=== PATIENT | female | born 1955 | race Caucasian/White ===

== ENCOUNTER 2020-07-28 08:06 | Day surgery (SDC) | payer BC ==
[2020-07-24 14:45] LABS: Absolute Lymphocytes (CBC) 1.9 K/uL (0.7-4.9); Basophils % 0.7 % (0-1.3); Hematocrit 40.2 % (36.0-45.0); Lymphocytes % 33.6 % (15.3-44.8); MPV 9.6 fL (7.6-11.3); RBC Red Blood Cell Count 4.08 M/uL (3.86-4.86)
[2020-07-24 14:50] LABS: Protime INR 1.07
--- NOTE | 2020-07-24 14:50 | RAD REPORT ---
EXAM DESCRIPTION: RAD - Chest Pa And Lat (2 Views) - 07/24/2020 2:30 pm CLINICAL HISTORY: pre op Chest pain. COMPARISON: CHEST SINGLE VIEW dated 11/26/2013; CHEST SINGLE VIEW dated 02/02/2012 TECHNIQUE: PA and lateral views of the chest were obtained. FINDINGS: The lungs are hyperexpanded compatible with COPD. The heart is upper limit of normal in si ze. No fracture or aggressive bony process. IMPRESSION: COPD without acute process identified.
--- NOTE | 2020-07-25 13:29 | EKG ---
Test Date: 2020-07-24 Test Time: 14:09:46 Mental Health Nurse: CAROL MEASUREMENT RESULTS: Intervals: Rate: 75 [place]: 164 QRSD: 74 QT: 394 QTc: 439 [place]: P: 64 NJ: 164 QRS: 67 T: 84 INTERPRETIVE STATEMENTS: Normal sinus rhythm Nonspecific ST abnormality Abnormal ECG Compared to ECG 11/27/2013 14:02:57 ST (T wave) deviation now present Ventricular premature complex(es) no longer present Electronically Signed On 07-25-20 13:28:16 SENIOR WAREHOUSE CLERK by Satnana Rousseau
[~2020-07-28 08:06] MED LIST: AMPICILLIN SODIUM 2 GM in NA CHLORIDE 0.9% 100 ML IVPB SCH; Gentamicin Inj 160 MG in NA CHLORIDE 0.9% 100 ML IV SCH
--- OUTSIDE RECORDS SUMMARY | 2020-07-28 08:09 | XMS REPORT | Summary of Care ---
:1955 Author Organization [facility] Address [address] [place] [id number] Care Team Providers Name Role Phone MD Olman Primary Care Provider Reason for Visit Reason Comments Vaginal Problem burning Encounter Details Date Type Department Care Team Description 06/01/2020 Urgent Care [facility] Family John Plasencia FNP [address] [place] [address] [address] Acute vaginitis (Primary Dx); Medicine - [place] Provider, [facility] Dysuria; [address] [place] [address] Elevated B P without diagnosis [place] [address] Allergies Active Allergy Reactions Severity Noted Date Comments Codeine Nausea and/or Vomiting 09/30/2015 Hydrocodone Nausea and/or Vomiting 09/30/2015 Morphine Nausea and/or Vomiting 09/30/2015 documented as of this encounter (statuses as of 06/01/2020) Medications Medication Sig Dispensed Refills Start Date End Date Status metoprolol tartrate Take 1 Tab by 3 07/07/2015 Active (LOPRESSOR) 50 mg tablet mouth 2 (two) times daily. ESCITALOPRAM OXALATE 10 TAKE 1 TABLET 90 tablet 3 09/27/2019 Active mg tabletIndications: BY MOUTH DAILY Depression, unspecified depression type naproxen 500 mg Take 1 tablet 60 tablet 0 10/29/2019 Active tabletIndications: Strain by mouth 2 of rhomboid muscle, (two) times initial encounter daily with meals. cyclobenzaprine 10 mg Take 1 tablet 30 tablet 0 10/29/2019 Active tabletIndications: Strain by mouth 3 of rhomboid muscle, (three) times initial encounter daily as needed for Muscle Spasms. documented as of this encounter (statuses as of 06/01/2020) Active Problems Problem Noted Date Depression 09/30/2015 documented as of this encounter (statuses as of 06/01/2020) Social History Tobacco Use Types Packs/Day Years Used Date Former Smoker Quit: 09/29/18 98 Smokeless Tobacco: Never Used Alcohol Use Drinks/Week oz/Week Comments No Sex Assigned at Date Recorded Not on file COVID-19 Exposure Response Date Recorded In the last month, have you been in contact with No / Unsure 06/01/2020 2:07 PM INTERNAL COMBUSTION ENGINE SUBASSEMBLER someone who was confirmed or suspected to have Coronavirus / COVID-19? documented as of this encounter Last Filed Vital Signs Vital Sign Reading Time Taken Comments Blood Pressure 157/80 06/01/2020 2:11 PM INTERNAL COMBUSTION ENGINE SUBASSEMBLER Pulse 79 06/01/2020 2:11 PM INTERNAL COMBUSTION ENGINE SUBASSEMBLER Temperature 36.7 C (98 F) 06/01/2020 2:11 PM INTERNAL COMBUSTION ENGINE SUBASSEMBLER Respiratory Rate 18 06/01/2020 2:11 PM INTERNAL COMBUSTION ENGINE SUBASSEMBLER Oxygen Saturation 97% 06/01/2020 2:11 PM INTERNAL COMBUSTION ENGINE SUBASSEMBLER Inhaled Oxygen Concentration - - Weight 99.3 kg (219 lb) 06/01/2020 2:11 PM INTERNAL COMBUSTION ENGINE SUBASSEMBLER Height 182.9 cm (6') 06/01/2020 2:11 PM INTERNAL COMBUSTION ENGINE SUBASSEMBLER Body Mass Index 29.7 06/01/2020 2:11 PM INTERNAL COMBUSTION ENGINE SUBASSEMBLER documented in this encounter Patient Instructions Patient InstructionsZamzam Plasencia FNP - 06/01/2020 1:40 PM CST Patient Education Preventing Vaginitis Use mild, unscented soap when you bathe or shower to avoid irritating your vagina. Vaginitis is irritation or infection of the vagina or the outside opening of it (vulva).Vaginitis can be caused by bacteria, viruses, parasites, or yeast. Chemicals such as in perfumes or soaps or inspermicides can sometimes be a cause. Vaginitis can be caused by hormone changes in or with menopause.You can help prevent vaginitis. Follow the tips below. And see your healthcare providerif you have any symptoms. Hygiene Stay away from chemicals. Don't use vaginal sprays. Don't use scented toilet paper or tampons that are scented. Sprays and scents have chemicals that can irritate your vagina. Don't douche unless you are told to by your healthcare provider. Douching is rarely needed. And it upsets the normal balance in the vagina. Wash yourself well. Wash the outer vaginal area (vulva) every day with mild, unscented soap. Keepit as dry as possible. Wipe correctly. Make sure to wipe from front to back after a bowel movement. This helps keep fromspreading bacteria from your anus to your vagina. Change your tampon often. During your period, make sure to change your tampon as often as directed on the package. This allows the normal flow of vaginal discharge and blood. Lifestyle Limit your number of sexual partners. The more partners you have, the greater your risk of infection. Using condoms helps reduce your risk. Get enough sleep. Sleep helps keep your bodys immune system healthy. This helps you fight infection. Lose weight, if needed. Excess weight can reduce air circulation around your vagina. This can increase your risk of infection. Exercise regularly. Regular activity helps keep your body healthy. Take antibiotics only as directed.Antibiotics can change the normal chemical balance in the vagina. Clothing Dont sit in wet clothes. Yeast thrives when its warm and damp. Dont wear tight pants. And dont wear tights, leggings, or hose without a cotton crotch. These types of clothing trap warmth and moisture. Wear cotton underwear. Cotton lets air circulate around the vagina. Symptoms of vaginitis Irritation, swelling, or itching of the genital area Vaginal discharge Bad vaginal odor Pain or burning during urination [employer] last reviewed this educational content on 05/10/201919993197-8737 [employer]. [address] [place] [address]. All rights reserved. This information is not intended as a substitute for professional medical care. Always follow your healthcare professional's instructions. RNAL COMBUSTION ENGINE SUBASSEMBLER documented in this encounter Progress Notes Zamzam Plasencia FNP - 06/01/2020 1:40 PM CST Cc: Chief Complaint Patient presents with Vaginal Problem burning Kandy Zheng is a 64 year old female. Patient was treated for UTI during which she had to stop one antibiotics and start another due to culture. After the courses of antibiotics, she developed some rawness in her vulva which zaldivar when sheurinates, she is unsure if this is residual UTI symptoms or vaginitis from antibiotics side effects. Allergies Kandy is allergic to codeine; hydrocodone; and morphine. Medications Outpatient Medications Prior to Visit Medication Sig Dispense Refill cyclobenzaprine 10 mg tablet Take 1 tablet by mouth 3 (three) times daily as needed for Muscle Spasms. 30 tablet 0 naproxen 500 mg tablet Take 1 tablet by mouth 2 (two) times daily with meals. 60 tablet 0 ESCITALOPRAM OXALATE 10 mg tablet TAKE 1 TABLET BY MOUTH DAILY 90 tablet 3 metoprolol tartrate (LOPRESSOR) 50 mg tablet Take 1 Tab by mouth 2 (two) times daily. 3 No facility-administered medications prior to visit. Histories Past Medical History: Diagnosis Date Controlled atrial fibrillation Depression Past Surgical History: Procedure Laterality Date ECTOPIC REMOVAL 1994 FRACTURE SURGERY TONSILLECTOMY Social History Socioeconomic History Marital status: Spouse name: Not on file Number of children: Not on file Years of education: Not on file Highest education level: Not on file Occupational History Not on file Social Needs Financial resource strain: Not on file Food insecurity Worry: Not on file Inability: Not on file Transportation needs Medical: Not on file Non-medical: Not on file Tobacco Use Smoking status: Former Smoker Quit date: 09/29/1997 Years since quittin.6 Smokeless tobacco: Never Used Substance and Sexual Activity Alcohol use: No Drug use: Not on file Sexual activity: Not on file Lifestyle Physical activity Days per week: Not on file Minutes per session: Not on file Stress: Not on file Relationships Social connections Talks on phone: Not on file Gets together: Not on file Attends jain service: Not on file Active member of club or organization: Not on file Attends meetings of clubs or organizations: Not on file Relationship status: Not on file Intimate partner violence Fear of current or ex partner: Not on file Emotionally abused: Not on file Physically abused: Not on file Forced sexual activity: Not on file Other Topics Concern Not on file Social History Narrative Not on file Family History Problem Relation Age of Onset Aneurysm Mother Heart Father Cervical Cancer Sister Breast Cancer Maternal Grandmother Colon Cancer Paternal Grandmother Review of Systems Constitutional: Negative. Respiratory: Negative. Negative for apnea, cough, choking, chest tightness, shortness of breath andwheezing. Cardiovascular: Negative. Negative for chest pain, palpitations and leg swelling. Gastrointestinal: Negative. Genitourinary: Positive for dysuria and genital sores. Negative for urgency, decreased urine volume,vaginal bleeding and vaginal discharge. Skin: Negative. Neurological: Negative. Endocrine: Endocrine negative Vital Signs BP (!) 157/80 | Pulse 79 | Temp 36.7 C (98 F) (Oral) | Resp 18 | Ht 6' (1.829 m) | Wt 219 lb (99.3 kg) | SpO2 97% | BMI 29.70 kg/m Physical Exam Vitals signs and nursing note reviewed. Constitutional: Appearance: She is well-developed. HENT: Head: Normocephalic. Right Ear: External ear normal. Left Ear: External ear normal. Nose: Nose normal. Neck: Musculoskeletal: Normal range of motion and neck supple. Cardiovascular: Rate and Rhythm: Normal rate and regular rhythm. Heart sounds: Normal heart sounds. No murmur. No friction rub. No gallop. Pulmonary: Effort: Pulmonary effort is normal. No respiratory distress. Breath sounds: Normal breath sounds. No wheezing or rales. Chest: Chest wall: No tenderness. Abdominal: General: Bowel sounds are normal. There is no distension. Palpations: Abdomen is soft. Tenderness: There is no abdominal tenderness. Genitourinary: Comments: Differed Skin: General: Skin is warm and dry. Capillary Refill: Capillary refill takes less than 2 seconds. Coloration: Skin is not pale. Findings: No erythema or rash. Neurological: Mental Status: She is alert and oriented to person, place, and time. Psychiatric: Mood and Affect: Mood normal. Assessment/Plan Acute vaginitis (primary encounter diagnosis) Comment: likely side effects of antibiotics Plan: take OTC antifungal vaginal cream as directed Clinical references for home care instructions added to AVS. If no improvement or worse, please RTC. Dysuria Comment: likely from soreness along the vulva and vaginal region, but will re- eval UTI Plan: POCT URINALYSIS W SPECIFIC GRAVITY, URINALYSIS MICROSCOPIC, URINE CULTURE, URINALYSIS MICROSCOPIC Elevated blood pressure: follow up with PCP or group tester if persistent considering hx of Afib. Plan of care, desired health behaviors, goals, and medication discussed with patient. Education resources provided and reviewed with AVS. Patient/guardian/family verbalized understanding & agrees to plan of care. This visit did not involve counseling and coordination that comprised more than 50% of the visit time. If applicable, the [facility] database was accessed to review any controlled substance prescription claims data. The [employer] prescription claims data in [employer] was reviewed to assess patient compliance with the medication treatment plan. RNAL COMBUSTION ENGINE SUBASSEMBLER documented in this encounter Plan of Treatment Name Type Priority Associated Diagnoses Order S chedule URINALYSIS MICROSCOPIC LAB Routine Dysuria Expec percy: 06/01/2020, Expires: 2020 URINE CULTURE LAB Routine Dysuria Ordered: 06/01 Health Maintenance Due Date Last Done Comments HEPATITIS C (HCV) SCREEN 1955 Depression Screening 1969 DTaP,Tdap,and Td Vaccines (1 - 1976 Tdap) PAP SMEAR 1978 Breast Cancer Screening (MAMMOGRAM) 1997 COLON CANCER SCREENING ANNUAL 2007 FIT/FOBT COLON CANCER SCREENING FIT DNA 2007 EVERY 3 YEARS COLON CANCER SCREENING 2007 SIGMOIDOSCOPY EVERY 5 YEARS COLONOSCOPY 2007 Colorectal Cancer Screening 2007 Zoster Recombinant Vaccine 2007 (SHINGRIX) (1 of 2) INFLUENZA VACCINE (#1) 2020 PNEUMOCOCCAL 0-64 YEARS COMBINED Aged Out No longer eligible based on SERIES patient's age to complete this topic documented as of this encounter Procedures Procedure Name Priority Date/Time Associated Diagnosis Comme nts POCT URINALYSIS STAT 06/01/2020 Dysuria Results for this procedure are in the resu lts section. documented in this encounter Results POCT URINALYSIS W SPECIFIC GRAVITY (06/01/2020) Pathologist Sig nature POCT U SP GRAV 1.015 1.005 - 1.025 mg/dl POCT PH U 5 5 - 8 mg/dl POCT U LEUK EST ++ Negative - Negative POCT U NIT NEGATIVE Negative - Negative POCT U PROT TRACE Negative - Negative POCT U GLU 100 Negative - Negative POCT U KETONE NEGATIVE Negative - Negative POCT U UROBILI NORMAL 0.2 - 1 mg/dl POCT U BILI NEGATIVE Negative - Negative POCT U BLD 50 Negative - Negative POCT U COLOR PALE YELLOW POCT U APPEAR CLOUDY Specimen Urine - URINE, CLEAN CATCH documented in this encounter Visit Diagnoses Diagnosis Acute vaginitis - Primary Vaginitis and vulvovaginitis, unspecifie d Dysuria Elevated BP without diagnosis of hyperte nsion documented in this encounter Insurance Payer Benefit Plan Subscriber ID Effective Dates Phone Address Type / Group BCBS OF [facility] [id number] 2019-[facility] [phone] [address] PPO/POS [place] t [id number] [place] [address] documented as of this encounter"
--- OUTSIDE RECORDS SUMMARY | 2020-07-28 08:09 | XMS REPORT | Continuity of Care Document ---
:1955 Author Organization [facility] t Address [address] [place] [address] Care Team Providers Name Role Phone Olman DONOHUE Attending Clinician Problems This patient has no known problems. Allergies, Adverse Reactions, Alerts This patient has no known allergies or adverse reactions. Medications This patient has no known medications. Procedures This patient has no known procedures. Encounters Start End Encounter Admission Attending Care Care Encounter Source Date/Time Date/Time Type Type Clinicians Facility Department ID 2020-07-17 2020-07-17 Outpatient [facility] [id number] [facility] 2020-07-15 2020-07-15 Outpatient [facility] [id number] [facility] [address] 00:00:00 00[facility]00:00 [facility] 2020-07-08 2020-07-08 Office Olman [facility] [id number] 20 08:10:15 08:43:31 Visit [facility] [id number] [place] [id number] [place] [phone] [phone] 2020-07-06 2020-07-06 Outpatient [facility] [id number] [facility] 2020-07-02 2020-07-02 Outpatient [facility] [id number] [facility] 2020-07-01 2020-07-01 Out[facility] [id number] [facility] 2020-06-17 2020-06-17 Outpatient [facility] [id number] [facility] 2020-06-17 2020-06-17 Outpatient [facility] [id number] [facility] 2020-06-10 2020-06-10 Outpatient [facility] [id number] [facility] Results This patient has no known results.
--- OUTSIDE RECORDS SUMMARY | 2020-07-28 08:09 | XMS REPORT | Summary of Care ---
:1955 Author Organization [facility] - [facility] Address [address] [place] [address] Care Team Providers Name Role Phone MD Olman Primary Care Provider Reason for Visit Reason Comments UTI burning with urination 3 day s Encounter Details Date Type Department Care Team Description 05/13/2020 Urgent Care [facility] Jacqui Rodriguez, PA [address] [place] [address] [place] [address] Dysuria (Primary Dx); Medicine - [place] Provider, [facility] Acute cystitis with hematuria; [address] [place] [address] Elevated B [place] [address] Allergies Active Allergy Reactions Severity Noted Date Comments Codeine Nausea and/or Vomiting 09/30/2015 Hydrocodone Nausea and/or Vomiting 09/30/2015 Morphine Nausea and/or Vomiting 09/30/2015 documented as of this encounter (statuses as of 05/13/2020) Medications Medication Sig Dispensed Refills Start Date End Date Status metoprolol tartrate Take 1 Tab by 3 07/07/2015 Active (LOPRESSOR) 50 mg tablet mouth 2 (two) times daily. ESCITALOPRAM OXALATE 10 TAKE 1 TABLET 90 tablet 3 09/27/2019 Active mg tabletIndications: BY MOUTH DAILY Depression, unspecified depression type naproxen 500 mg Take 1 tablet 60 tablet 0 10/29/2019 Active tabletIndications: by mouth 2 Strain of rhomboid (two) times muscle, initial daily with encounter meals. cyclobenzaprine 10 mg Take 1 tablet 30 tablet 0 10/29/2019 Active tabletIndications: by mouth 3 Strain of rhomboid (three) times muscle, initial daily as encounter needed for Muscle Spasms. cefUROXime 250 mg Take 1 tablet 14 tablet 0 05/13/2020 020 Active tabletIndications: Acute by mouth 2 cystitis with hematuria (two) times daily for 7 days. 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 documented as of this encounter Last Filed Vital Signs Vital Sign Reading Time Taken Comments Blood Pressure 155/83 05/13/2020 4:14 PM INTERNAL COMBUSTION ENGINE INSPECTOR Pulse 75 05/13/2020 4:11 PM INTERNAL COMBUSTION ENGINE INSPECTOR Temperature 37 C (98.6 F) 05/13/2020 4:11 PM INTERNAL COMBUSTION ENGINE INSPECTOR Respiratory Rate 18 05/13/2020 4:11 PM INTERNAL COMBUSTION ENGINE INSPECTOR Oxygen Saturation 96% 05/13/2020 4:11 PM INTERNAL COMBUSTION ENGINE INSPECTOR Inhaled Oxygen Concentration - - Weight 100.2 kg (221 lb) 05/13/2020 4:11 PM INTERNAL COMBUSTION ENGINE INSPECTOR Height 181.6 cm (5' 11.5") 05/13/2020 4:11 PM INTERNAL COMBUSTION ENGINE INSPECTOR Body Mass Index 30.39 05/13/2020 4:11 PM INTERNAL COMBUSTION ENGINE INSPECTOR documented in this encounter Patient Instructions Patient InstructionsBelkis Rodriguez PA - 05/13/2020 3:40 PM INTERNAL COMBUSTION ENGINE INSPECTOR Patient Education Urinary Tract Infections in Women Urinary tract infections (UTIs) are most often caused by bacteria. These bacteria enter the urinary tract. The bacteria may come from inside the body. Or they may travel from the skin outside the rectum or vagina into the urethra. Female anatomy makes it easy for bacteria from the bowel to enter a womans urinary tract. This is the most common source of UTI. This means women develop UTIs more oftenthan men. Pain in or around the urinary tract is a common UTI symptom. Most UTIs are treated with antibiotics. These kill the bacteria. The length of time you need to takethem depends on the type of infection. It may be as short as 3 days. If you have repeated UTIs, you may need a low-dose antibiotic for several months. Take antibiotics exactly as directed. Dont stoptaking them until all of the medicine is gone. If you stop taking the antibiotic too soon, the infection may not go away. You may also develop a resistance to the antibiotic. This can make it much harder to treat in the future. Home care The lifestyle changes below will help get rid of your UTI. They may also help prevent future UTIs: Drink plenty of fluids. This includes water, juice, or other caffeine-free drinks. Fluids help flush bacteria out of your body. Empty your bladder. Always empty your bladder when you feel the urge to pee. And always pee before going to sleep. Urine that stays in your bladder can lead to infection. Try to pee before and aftersex as well. Practice good personal hygiene. Wipe yourself from front to back after using the toilet. This helps keep bacteria from getting into the urethra. Use condoms during sex. These help prevent UTIs caused by sexually transmitted bacteria. Also don't use spermicides during sex. These can increase the risk for UTIs. Choose other forms of control instead. For women who tend to get UTIs after sex, a low-dose of a preventive antibiotic may be used. Be sure to discuss this option with your healthcare provider. Try holistic supplements such as cranberry tablets and D-mannose. These may help prevent UTIs. Try topical vaginal estrogen. You can use this to help prevent UTIs if you have gone through menopause. Follow-up care Follow up with your healthcare provider as directed. He or she may test to make sure the infection has cleared. If needed, more treatment may be started. When to seek medical advice Call your healthcare provider right away if any of these occur: Frequent urination Pain or burning when passing urine Fever of 100.4F (38C) or higher , or as directed by your healthcare provider Urine looks dark, cloudy, or reddish in color. This may mean that blood is in the urine. Urine smells bad Feeling pain even when not urinating Tiredness Pain in the belly (abdomen) area below the bellybutton, or in the back or side, below the ribs Nausea or vomiting Have a strong urge to urinate, but only a small amount of urine is passed Uncomfortable pressure above the pubic bone Feeling confused or very tired (in older adults) The [employer] last reviewed this educational content on 11/08/201919994829-9539 The [employer]. All rights reserved. This information is not intended as a substitute for professional medical care. Always follow your healthcare professional's instructions. Patient Education Cefuroxime tablets Brand Names: Alti-Cefuroxime, Ceftin What is this medicine? CEFUROXIME (se fyoor OX eem) is a cephalosporin antibiotic. It is used to treat certain kinds of bacterial infections. It will not work for colds, flu, or other viral infections. How should I use this medicine? Take this medicine by mouth with a full glass of water. Follow the directions on the prescription label. Do not crush or chew. This medicine works best if you take it with food. Take your medicine at regular intervals. Do not take your medicine more often than directed. Take all of your medicine as directed even if you think your are better. Do not skip doses or stop your medicine early. Talk to your obstetrics specialist regarding the use of this medicine in children. Special care may be needed. While this drug may be prescribed for children as young as 3 months of age for selected conditions,precautions do apply. What side effects may I notice from receiving this medicine? Side effects that you should report to your doctor or health care aide as soon as possible: allergic reactions like skin rash, itching or hives, swelling of the face, lips, or tongue dark urine difficulty breathing fever irregular heartbeat or chest pain redness, blistering, peeling or loosening of the skin, including inside the mouth seizures unusual bleeding or bruising unusually weak or tired white patches or sores in the mouth Side effects that usually do not require medical attention (report to your doctor or health care aide if they continue or are bothersome): diarrhea gas or heartburn headache nausea, vomiting vaginal itching What may interact with this medicine? This medicine may interact with the following medications: antacids control pills certain medicines for infection like amikacin, gentamicin, tobramycin diuretics probenecid warfarin What if I miss a dose? If you miss a dose, take it as soon as you can. If it is almost time for your next dose, take only that dose. Do not take double or extra doses. Where should I keep my medicine? Keep out of the reach of children. Store at room temperature between 15 and 30 degrees C (59 and 86 degrees F). Keep container tightly closed. Protect from moisture. Throw away any unused medicine after the expiration date. What should I tell my health care provider before I take this medicine? They need to know if you have any of these conditions: bleeding problems bowel disease, like colitis kidney disease liver disease an unusual or allergic reaction to cefuroxime, other antibiotics or medicines, foods, dyes or preservatives or trying to get breast-feeding What should I watch for while using this medicine? Tell your doctor or health care aide if your symptoms do not improve or if you get new symptoms. Do not treat diarrhea with over the counter products. Contact your doctor if you have diarrhea that lasts more than 2 days or if it is severe and watery. This medicine can interfere with some urine glucose tests. If you use such tests, talk with your health care aide. If you are being treated for a sexually transmitted disease, avoid sexual contact until you have finished your treatment. Your sexual partner may also need treatment. NOTE:This sheet is a summary. It may not cover all possible information. If you have questions aboutthis medicine, talk to your doctor, pharmacist, or health care provider. Copyright 2018 [employer]L COMBUSTION ENGINE INSPECTOR documented in this encounter Progress Notes Belkis Rodriguez PA - 05/13/2020 3:40 PM CST Cc: Chief Complaint Patient presents with UTI Riki Thornton is a 64 year old female. URINARY TRACT INFECTION Patient presents to clinic today with complaints of dysuria. Patient denies bladder incontinence, flank pain, frequency, hematuria, hesitancy, inability to urinate, nocturia, stress incontinence, urge incontinence or urgency. This is a new problem. The current episode started in the past 7 days. Patient describes pain as burning. Obstructive symptoms do not include dribbling, incomplete emptying, anintermittent stream, a slower stream, straining or a weak stream. Pertinent negatives include no abdominal pain, chills, discharge, facial swelling, fever, flank pain, genital pain, nausea, possible , sweats or vomiting. Her past medical history is significant for recurrent UTIs (had recurrent UTI a couple of years ago, saw Dr. Sharif (urology)). There is no history of kidney stones or STDs. Allergies Riki is allergic to codeine; hydrocodone; and morphine. [...] file Gets together: Not on file Attends church service: Not on file Active member of [...] Cancer Paternal Grandmother Review of Systems Constitutional: Negative for activity change, appetite change, chills, diaphoresis, fatigue and fever. HENT: Negative for facial swelling. Respiratory: Negative for chest tightness, shortness of breath and wheezing. Cardiovascular: Negative for chest pain, palpitations and leg swelling. Gastrointestinal: Negative for abdominal pain, diarrhea, nausea and vomiting. Genitourinary: Positive for dysuria. Negative for bladder incontinence, urgency, frequency, hematuria, flank pain, decreased urine volume, difficulty urinating, incomplete emptying and nocturia. Musculoskeletal: Negative for arthralgias, back pain and myalgias. Neurological: Negative for dizziness, syncope, weakness and light-headedness. Vital Signs BP (!) 155/83 | Pulse 75 | Temp 37 C (98.6 F) (Oral) | Resp 18 | Ht 5' 11.5" (1.816 m) | Wt221 lb (100.2 kg) | SpO2 96% | BMI 30.39 kg/m Vitals: 05/13/20 1611 05/13/20 1614 BP: (!) 149/84 (!) 155/83 Pulse: 75 Resp: 18 Temp: 37 C (98.6 F) TempSrc: Oral SpO2: 96% Weight: 221 lb (100.2 kg) Height: 5' 11.5" (1.816 m) Physical Exam Vitals signs and nursing note reviewed. Constitutional: General: She is not in acute distress. Appearance: She is well-developed. She is not ill-appearing, toxic-appearing or diaphoretic. HENT: Head: Normocephalic and atraumatic. Cardiovascular: Rate and Rhythm: Normal rate and regular rhythm. Heart sounds: Normal heart sounds. Pulmonary: Effort: Pulmonary effort is normal. Breath sounds: Normal breath sounds. Abdominal: General: Bowel sounds are normal. There is no distension. Palpations: Abdomen is soft. Abdomen is not rigid. Tenderness: There is no abdominal tenderness. There is no right CVA tenderness, left CVA tenderness, guarding or rebound. Musculoskeletal: Normal range of motion. Skin: General: Skin is warm and dry. Neurological: Mental Status: She is alert and oriented to person, place, and time. Psychiatric: Behavior: Behavior normal. Assessment/Plan Dysuria (primary encounter diagnosis) Plan: POCT URINALYSIS W SPECIFIC GRAVITY Results for RIKI THORNTON ( ) as of 05/13/2020 16:33 Ref. Range 05/13/2020 00:00 POCT PH U Latest Ref Range: 5 - 8 mg/dl 5 POCT U SP GRAV Latest Ref Range: 1.005 - 1.025 mg/dl 1.005 POCT U GLU Latest Ref Range: Negative - Negative negative POCT U BLD Latest Ref Range: Negative - Negative about 50 POCT U KETONE Latest Ref Range: Negative - Negative negative POCT U PROT Latest Ref Range: Negative - Negative trace POCT U UROBILI Latest Ref Range: 0.2 - 1 mg/dl normal POCT U BILI Latest Ref Range: Negative - Negative negative POCT U NIT Latest Ref Range: Negative - Negative negative POCT U LEUK EST Latest Ref Range: Negative - Negative ++ POCT U COLOR Unknown yellow POCT U APPEAR Unknown cloudy Acute cystitis with hematuria Plan: URINE CULTURE, cefUROXime 250 mg tablet POCT UA positive for UTI = positive leuk. Afebrile, well appearing, NAD. No f/c, n/v. No flank pain and no CVAT. Patient had recent labs on 04/29/2020 with her cardiolgist, Dr. Briscoe, and Creatinine 0.79, GFR 80 (creatinine clearance 117 ml/min). Will start on ceftin for UTI. Take full course with food, even if feeling better Recommend the following at home care: Increase water intake Wipe front to back for females Cranberry juice Frequent voiding Avoid sexual activity until UTI resolves In the future, void before and after sexual activity Azo- may take for maximum 2 days as needed for burning ER--> worsening condition; nausea, vomiting, dizziness, passing out, fever, chills, severe pain Elevated BP without diagnosis of hypertension Plan: BP 155/83 at recheck. No pmh of HTN. No cp, palpitations, sob, SALAS, dizziness, syncope. Watch blood pressure: check 2-3 times daily and log. Look for high numbers >= 130/80. Log readings and follow-up with Dr. Briscoe (cardio) or PCP regarding. Low salt Low caffeine diet Low alcohol Avoid tobacco products. Avoid decongestants Heart Healthy Exercise: total of 150 minutes of cardio: walking,swimming, hiking, biking every week. Heart healthy diet: low fat/carb/sugar diet; increase lean meat-chicken, turkey, fish; increase vegetables/fruits ( still be careful because elevated sugar level) Er--> chest pain, dizziness, passing out, fluttering of heart, shortness of breath. Pt ed/precautions given in detail regarding conditions/medicaitons. Er precautions given. Pt reportsunderstanding and agrees. rtc if s/s worsen or do not improve ; Plan of care, desired health behaviors, goals, Ddx, & any prescribed or OTC medications discussed with patient. Education resources & self management tools provided and reviewed with AVS. Patient/guardian/family verbalized understanding & agrees to plan of care. Barriers to care: NONE Ability to manage care: Good This visit did not involve counseling and coordination that comprised more than 50% of the visit time. documented in this encounter Plan of Treatment Name Type Priority Associated Diagnoses Date/Ti me URINE CULTURE LAB Routine Acute cystitis with hematur ia 05/13/2020 4:49 PM INTERNAL COMBUSTION ENGINE INSPECTOR Health Maintenance Due Date Last Done Comments [...] Date/Time Associated Diagnosis Comme nts POCT URINALYSIS Routine 05/13/2020 Dysuria Results for this procedure are in the resu lts section. documented in this encounter Results POCT URINALYSIS W SPECIFIC GRAVITY (05/13/2020) Pathologist Sig nature POCT U SP GRAV 1.005 1.005 - 1.025 mg/dl POCT PH U 5 5 - 8 mg/dl POCT U LEUK EST ++ Negative - Negative POCT U NIT negative Negative - Negative POCT U PROT trace Negative - Negative POCT U GLU negative Negative - Negative POCT U KETONE negative Negative - Negative POCT U UROBILI normal 0.2 - 1 mg/dl POCT U BILI negative Negative - Negative POCT U BLD about 50 Negative - Negative POCT U COLOR yellow POCT U APPEAR cloudy Specimen Urine - URINE, CLEAN CATCH documented in this encounter Visit Diagnoses Diagnosis Dysuria - Primary Acute cystitis with hematuria Acute cystitis Elevated BP without diagnosis of hyperte nsion documented in this encounter Insurance Payer Benefit Plan Subscriber ID Effective Dates Phone Address Type / Group BCBS [facility] [id number] 2019-Haris [phone] [address] PPO/POS [facility] [id number] [place] [address] documented as of this encounter
--- OUTSIDE RECORDS SUMMARY | 2020-07-28 08:09 | XMS REPORT | Summary of Care ---
:1955 Author Organization [facility] Address [address] [place] [address] Care Team Providers Name Role Phone MD Olman Primary Care Provider Reason for Visit Reason Comments Orders Encounter Details Date Type Department Care Team Description 05/16/2020 Telephone [facility] Pediatric and Belkis Rodriguez PA Orders Adult Primary Care- [address] [place] [address] [place] [address], [phone] [address] [place] [address] Allergies Active Allergy Reactions Severity Noted Date Comments Codeine Nausea and/or Vomiting 09/30/2015 Hydrocodone Nausea and/or Vomiting 09/30/2015 Morphine Nausea and/or Vomiting 09/30/2015 documented as of this encounter (statuses as of 05/16/2020) Medications Medication Sig Dispensed Refills Start Date End Date Status metoprolol tartrate Take 1 Tab 3 07/07/2015 Active (LOPRESSOR) 50 mg by mouth 2 tablet (two) times daily. ESCITALOPRAM OXALATE TAKE 1 90 tablet 3 09/27/2019 Active 10 mg TABLET BY tabletIndications: MOUTH DAILY Depression, unspecified depression type naproxen 500 mg Take 1 60 tablet 0 10/29/2019 Act santy tabletIndications: tablet by Strain of rhomboid mouth 2 muscle, initial (two) times encounter daily with meals. cyclobenzaprine 10 Take 1 30 tablet 0 10/29/2019 Active mg tablet by tabletIndications: mouth 3 Strain of rhomboid (three) muscle, initial times daily encounter as needed for Muscle Spasms. ampicillin 500 mg Take 1 28 capsule 0 05/16/2020 05/23/20 Active capsuleIndications: capsule by 20 Acute cystitis with mouth every hematuria 6 (six) hours for 7 days. cefUROXime 250 mg Take 1 14 tablet 0 05/13/2020 05/16/20 D iscontinued tabletIndications: tablet by 20 ( Alternate Acute cystitis with mouth 2 therapy) hematuria (two) times daily for 7 days. 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 documented as of this encounter Last Filed Vital Signs Not on filedocumented in this encounter Plan of Treatment Health Maintenance Due Date Last Done Comments HEPATITIS C (HCV) SCREEN 1955 Depression Screening 1969 DTaP,Tdap,and Td Vaccines ( - 1976 Tdap) PAP SMEAR 1978 Breast [...] this topic documented as of this encounter Results Not on filedocumented in this encounter Visit Diagnoses Diagnosis Acute cystitis with hematuria - Primary Acute cystitis documented in this encounter Insurance Payer Benefit Plan Subscriber ID Effective Dates Phone Address Type / Group BCBS OF [facility] [id number] 2019-Haris [phone] [address] PPO/POS [facility] [id number] [place] [address] documented as of this encounter
--- OUTSIDE RECORDS SUMMARY | 2020-07-28 08:10 | XMS REPORT | Summary of Care ---
:1955 Author Organization [facility] Address [address] [place] [address] Care Team Providers Name Role Phone MD Olman Primary Care Provider Reason for Visit Reason Comments Results Encounter Details Date Type Department Care Team Description 06/08/2020 Telephone [facility] [place] Family Medicine Provider, [facility] Urgent Results - [address] [place] [address] Allergies Active Allergy Reactions Severity Noted Date Comments Codeine Nausea and/or Vomiting 09/30/2015 Hydrocodone Nausea and/or Vomiting 09/30/2015 Morphine Nausea and/or Vomiting 09/30/2015 documented as of this encounter (statuses as of 06/08/2020) Medications Medication Sig Dispensed Refills Start Date End Date Status metoprolol tartrate Take 1 Tab by 3 07/07/2015 Active (LOPRESSOR) 50 mg mouth 2 (two) tablet times daily. ESCITALOPRAM OXALATE 10 TAKE 1 [...] daily as encounter needed for Muscle Spasms. ampicillin 500 mg Take 1 capsule 28 capsule 0 06/08/202006/15 Active capsuleIndications: by mouth every Acute cystitis with 6 (six) hours hematuria for 7 days. 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 documented as of this encounter Last Filed Vital Signs Not on filedocumented in this encounter Miscellaneous Notes Telephone Encounter - Kimberli Cintron LVN - 06/08/2020 2:07 PM CSTPatient notified of results. Verbalized understanding. PRESIDENT NETWORK Telephone Encounter - Kimberli Cintron LVN - 06/08/2020 12:39 PM CSTPlease review patient's UC and UA From Urgent Care visit 06/01/20 and prescribe medication if appropriate. elephone Encounter - Edelmira Downey - 06/08/2020 10:55 AM CSTPt calling back in regards to below encounter, patient stated she is miserable. PRESIDENT NETWORK Telephone Encounter - Sherrell Posadas - 06/08/2020 10:26 AM CSTPatient is calling for her lab results and is requesting a call back as soon as possible. documented in this encounter Plan of Treatment Health [...] Phone Address Type / Group BCBS OF [facility] [id number] 2019-Haris [phone] [address] PPO/POS [place] [id number] [place] [address] documented as of this encounter
--- OUTSIDE RECORDS SUMMARY | 2020-07-28 08:10 | XMS REPORT | Summary of Care ---
:1955 Author Organization [facility] Address [address] [place] [address] Care Team Providers Name Role Phone MD Olman Primary Care Provider Reason for Visit Auth/Cert Status Reason Specialty Diagnoses / Procedures Referred By Jeaneth mora Referred To Contact Radiology [facility] Ultrasound [address] [place] [address] Phone: Fax: Encounter Details Date Type Department Care Team Description 07/01/2020 Hospital Encounter [facility] Radiolog y Arrived [facility] [address] [place] [address] [address] Allergies Active Allergy Reactions Severity Noted Date Comments Codeine Nausea and/or Vomiting 09/30/2015 Hydrocodone Nausea and/or Vomiting 09/30/2015 Morphine Nausea and/or Vomiting 09/30/2015 documented as of this encounter (statuses as of 07/02/2020) Medications Medication Sig Dispensed Refills Start Date [...] as of this encounter (statuses as of 07/02/2020) Active Problems Problem Noted Date Depression 09/30/2015 documented as of this encounter (statuses as of 07/02/2020) Social History Tobacco Use Types Packs/Day Years Used Date Former Smoker Quit: 09/29/18 98 Smokeless Tobacco: Never Used Alcohol Use Drinks/Week oz/Week Comments No Sex Assigned at Date Recorded Not on file COVID-19 Exposure Response Date Recorded In the last month, have you been in contact with No / Unsure 07/01/2020 12:09 PM LONG DISTANCE OPERATOR someone who was confirmed or suspected to have Coronavirus / COVID-19? documented as of this encounter Last Filed Vital Signs Not on filedocumented in this encounter Plan of Treatment Date Type Specialty Care Team Description 07/08/2020 Office Visit Family Medicine Francisco Thurman MD [address] [place] [address] [phone] Health Maintenance Due Date Last Done Comments [...] Name Priority Date/Time Associated Diagnosis Comme nts XR KUB STAT 07/01/2020 12:24 PM Lower urinary tract R esults for this LONG DISTANCE OPERATOR symptoms (LUTS) procedure are in History of the results nephrolithiasis section. documented in this encounter Results XR KUB (07/01/2020 12:24 PM LONG DISTANCE OPERATOR) Specimen Impressions Performed At PACS/VR/DOSE A 0.8 cm radiopaque density at the left upper quadrant that is not clearly visualized due to overlap of the stool-filled colon an d could represent a stone of the inferior pole of the left k idney. Preliminary Report Dictated by Resident: Jeanna Garg MD., have reviewed this stud y and agree with the above report. Narrative Performed At This result has an attachment that is no t available. EXAM: XR KUB PACS/VR/DOSE HISTORY: 64 years-old Female presenting with History o f nephrolithiasis COMPARISON: No prior studies available for comparison. TECHNIQUE: Frontal views of the abdomen and pelvis wer e obtained. FINDINGS: The lungs bases are out of field of view. Scattered ga s is seen in the small and large bowel. No evidence of dilated bowel. M oderate stool burden throughout the colon. A 0.8 cm radiopaque density at t he left upper quadrant that is not clearly visualized due to overlap of the stool-filled colon that could represent a stone of the inferior darshana e of the left kidney. A circular opacity is noted just below the left hemidi aphragm that could represent ingested material. No acute bony abnormaliti es are noted. Soft tissues are unremarkable. Procedure Note [facility], Radiant Results Inft User - 2019 12:38 PM LONG DISTANCE OPERATOR EXAM: XR KUB HISTORY: 64 years-old Female presenting with History of nephrolithiasis COMPARISON: No prior studies available f or comparison. TECHNIQUE: Frontal views of the abdomen and pelvis were obtained. FINDINGS: The lungs bases are out of field of view . Scattered gas is seen in the small and large bowel. No evidence of di lated bowel. Moderate stool burden throughout the colon. A 0.8 cm radiopaqu e density at the left upper quadrant that is not clearly visualized due to overlap of the stool-filled colon that could represent a stone of th e inferior pole of the left kidney. A circular opacity is noted just below t he left hemidiaphragm that could represent ingested material. No acute chaz ny abnormalities are noted. Soft tissues are unremarkable. IMPRESSION A 0.8 cm radiopaque density at the left upper quadrant that is not clearly visualized due to overlap of the stool-f illed colon and could represent a stone of the inferior pole of the left k idney. Preliminary Report Dictated by Resident: Jeanna Garg MD., have revie wed this study and agree with the above report. Performing Organization Address City/State/Zipcode Phone Number PACS/VR/DOSE documented in this encounter Visit Diagnoses Diagnosis Lower urinary tract symptoms (LUTS) Other symptoms involving urinary system History of nephrolithiasis Personal history of urinary calculi documented in this encounter Insurance Payer Benefit Plan Subscriber ID Effective Dates Phone Address Type / Group [facility] [id number] 2019-Haris [phone] [address] PPO/POS [place] t [id number] [place] [address] documented as of this encounter
--- OUTSIDE RECORDS SUMMARY | 2020-07-28 08:10 | XMS REPORT ---
:1955 Author Organization [facility] Address [address] [facility] 200 [place] [address] Care Team Providers Name Role Phone David Vee Unavailable [phone] PROBLEMS Type Condition ICD9-CM [id number] Onset Condition SNOMED Code Notes Code Code Dates Status Problem Acute lower UTI N39.0 Active 92017707 Problem History of Z87.442 Active 672081347 nephrolithiasis Problem Lower urinary R39.9 Active 553706582 tract symptoms (LUTS) ALLERGIES Allergen (clinical Drug/Non Drug Reaction Allergy Type Onset Date S tatus drug ingredient) Allergy documented on EMR CODEINE Unknown Non Drug Allergy Active MORPHINE Unknown Non Drug Allergy Active VICODIN Unknown Non Drug Allergy Active IMMUNIZATIONS No Information SOCIAL HISTORY Tobacco Use: Social History Observation Description Date Details (start date - stop date) Never Smoker Sex Assigned At : Social History Observation Description Sex Assigned At Unknown Alcohol Screen Question Answer Notes Did you have a drink containing alcohol in the past year? No Points 0 Interpretation Negative Tobacco Use/Smoking Question Answer Notes Are you a never smoker REASON FOR REFERRAL No Information VITAL SIGNS No information MEDICATIONS Medication SIG (Take, Route, Notes Start Date End Date Status Frequency, Duration) Calcium + Vitamin D3 600-5 1 tablet with a meal Active MG-MCG Orally Once a day Metoprolol Tartrate 50 MG 1 tablet with food Active Orally Twice a day Vitamin B 12 100 MCG as directed Orally Active Levocetirizine 1 tablet in the evening Active Dihydrochloride 5 MG Orally Once a day Centrum Silver - as directed Orally Active Aspirin 81 81 MG 1 tablet Orally Once a Active day Escitalopram Oxalate 10 MG 1 tablet Orally Once a Active day PROCEDURES No Information RESULTS No Results REASON FOR VISIT POSSIBLE CYSTO MEDICAL (GENERAL) HISTORY Type Description Date Medical History DIABETES Medical History AFIB-CORRECTED BY ABLATION Medical History SLEEP APNEA Surgical History HEART ABLATION Surgical History VEIN STRIP-LEG Surgical History ECTOPIC Surgical History TONSILS REMOVED Surgical History REPAIR/PIN IN FOOT Goals Section No Information Health Concerns No Information MEDICAL EQUIPMENT No Information MENTAL STATUS No Information FUNCTIONAL STATUS No Information ASSESSMENTS Encounter Date Diagnosis Assessment Notes Treatment Notes Treatm ent Clinical Notes Jun, Lower urinary tract symptoms (LUTS) (ICD-10 - R39.9) Jun, History of nephrolithiasis (ICD-10 - Z87.442) PLAN OF TREATMENT Treatment Notes Test Name Order Date Renal Ultrasound-Complete 2020-07-01 Abdomen 1 View (KUB) 2020-07-01 Next Appt Details Provider Name:David Vee, 10:00:00 AM, [address] [place] [address], [place], [address], Insurance Providers Payer Name Payer Payer Insured Name Patient Coverage Covera End Address Phone Relationship to Start Date Prosper e Insured Blue Cross [phone] RIKI THORNTON and Aron [id number] [address] [place] [phone]
--- OUTSIDE RECORDS SUMMARY | 2020-07-28 08:10 | XMS REPORT | Summary of Care ---
:1955 Author Organization [facility] Address [address] [place] [address] Care Team Providers Name Role Phone MD Olman Primary Care Provider Reason for Referral Radiology Services (STAT) Status Reason Specialty Diagnoses / Procedures Referred By Rachel [email or web address] To Contact Contact Closed Diagnostic Diagnoses Lower urinary tract symptoms (LUTS) History of nephrolithiasis [facility] Procedures US RETROPERITONEAL COMPLETE [address] [facility] [address] [place] [address] Reason for Visit Auth/Cert Status Reason Specialty Diagnoses / Procedures Referred By Jeaneth mora Referred To Contact Radiology [facility] Ultrasound [address] [place] [phone] Phone: Fax: Encounter Details Date Type Department Care Team Description 07/01/2020 Hospital Encounter [facility] Radiolog y Arrived [facility] [address] [place] [id number] [place] [phone] Allergies Active Allergy Reactions Severity Noted [...] with No / Unsure 07/01/2020 12:09 PM 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 documented as of this encounter Last Filed Vital Signs Not on filedocumented in this encounter Plan of Treatment Date Type Specialty Care Team Description 07/08/2020 Office Visit Family Medicine Francisco Thurman MD [address] [place] [phone] Health Maintenance Due Date Last Done [...] Name Priority Date/Time Associated Diagnosis Comme nts US RETROPERITONEAL STAT 07/01/2020 12:37 Lower urinary trac t Results for this COMPLETE PM AIRCRAFT DE ICER INSTALLER symptoms (LUTS) procedure are in History of the results nephrolithiasis section. documented in this encounter Results US RETROPERITONEAL COMPLETE (07/01/2020 12:37 PM AIRCRAFT DE ICER INSTALLER) Specimen Narrative Performed At This result has an attachment that is no t available. HISTORY: History of nephrolithiasis. PACS/VR/DOSE TECHNIQUE: Both kidneys are evaluated in multiple plan es with the patient in different positions. FINDINGS: Comparison is made with abdominal radiograph s done today. RIGHT KIDNEY: Measures 11.3 x 4.7 x 5.8 cm with cortic al thickness measuring up to 12.5 mm. No hydronephrosis or perineph leo fluid collection detected. LEFT KIDNEY: Measures 11.5 x 6.5 x 5.5 cm in size with cortical thickness measuring up to 12 mm. 5 to 6 mm size echogenic densit y in the lower pole of left kidney is consistent with nonobstructive stone . No hydronephrosis or perinephric fluid collection. Quick look at the urinary bladder showed no gross path ology. CONCLUSIONS: Nonobstructive stone in the lower pole of the left kidney. Procedure Note [facility], Radiant Results Inft User - 2019 12:40 PM AIRCRAFT DE ICER INSTALLER HISTORY: History of nephrolithiasis. TECHNIQUE: Both kidneys are evaluated in multiple planes with the patient in different positions. FINDINGS: Comparison is made with abdomi nal radiographs done today. RIGHT KIDNEY: Measures 11.3 x 4.7 x 5.8 cm with cortical thickness measuring up to 12.5 mm. No hydronephros is or perinephric fluid collection detected. LEFT KIDNEY: Measures 11.5 x 6.5 x 5.5 c m in size with cortical thickness measuring up to 12 mm. 5 to 6 mm size ec hogenic density in the lower pole of left kidney is consistent with nonobs tructive stone. No hydronephrosis or perinephric fluid collection. Quick look at the urinary bladder showed no gross pathology. CONCLUSIONS: Nonobstructive stone in the lower pole of the left kidney. Performing Organization Address City/State/Zipcode Phone Number PACS/VR/DOSE documented in this encounter Visit Diagnoses Diagnosis Lower urinary tract symptoms (LUTS) Other symptoms involving urinary system History of nephrolithiasis Personal history of urinary calculi documented in this encounter Insurance Payer Benefit Plan Subscriber ID Effective Dates Phone Address Type / Group BCBS OF [employer] [facility] [id number] 2019-Haris [phone] [address] PPO/POS [place] t 7 [id number] [place] [address] documented as of this encounter
--- OUTSIDE RECORDS SUMMARY | 2020-07-28 08:10 | XMS REPORT ---
:1955 Author Organization [facility] Address [address] [facility] [address] [place] [address] Care Team Providers Name Role Phone Mariusz David Unavailable [phone] PROBLEMS Type Condition ICD9-CM [id number] Onset Condition SNOMED Code Notes Code Code Dates Status Problem Lower urinary R39.9 Active 662765772 tract symptoms (LUTS) Problem Urinary tract N39.0 Active 198595956884296 infection, site not specified Problem Recurrent UTI N39.0 Active 945671945 Problem Acute lower UTI N39.0 Active 74802016 Problem History of Z87.442 Active 170682220 nephrolithiasis Problem Left N20.0 Active 58439426 nephrolithiasis Problem Enterococcus as B95.2 Active 832066677 the cause of diseases classified elsewhere ALLERGIES Allergen (clinical Drug/Non Drug Reaction Allergy Type Onset Date S tatus drug ingredient) Allergy documented on EMR CODEINE Unknown Non Drug Allergy Active MORPHINE Unknown Non Drug Allergy Active VICODIN Unknown Non Drug Allergy Active ENCOUNTERS from 1955 to 2020-07-06 Encounter Location Date Provider Diagnosis [facility] [address] [facility] [address] Jun, David Vee Specialty/[place] [address] IMMUNIZATIONS No Information SOCIAL HISTORY Tobacco Use: [...] Start Date End Date Status Frequency, Duration) Centrum Silver - as directed Orally Active Aspirin 81 81 MG 1 tablet Orally Once a Active day Metoprolol Tartrate 50 MG 1 tablet with food Active Orally Twice a day Vitamin B 12 100 MCG as directed Orally Active Calcium + Vitamin D3 600-5 1 tablet with a meal Active MG-MCG Orally Once a day Escitalopram Oxalate 10 MG 1 tablet Orally Once a Active day Levocetirizine 1 tablet in the evening Active Dihydrochloride 5 MG Orally Once a day PROCEDURES No Information RESULTS No Results REASON FOR VISIT No Information MEDICAL (GENERAL) HISTORY Type Description Date Medical History DIABETES Medical History AFIB-CORRECTED BY ABLATION Medical History SLEEP APNEA Surgical History HEART ABLATION Surgical History VEIN STRIP-LEG Surgical History ECTOPIC Surgical History TONSILS REMOVED Surgical History REPAIR/PIN IN FOOT Goals Section No Information Health Concerns No Information MEDICAL EQUIPMENT No Information MENTAL STATUS No Information FUNCTIONAL STATUS No Information ASSESSMENTS No Information PLAN OF TREATMENT Next Appt Details Provider Name:David Vee, 01:30:00 PM, [address] [place] [address], [phone], Provider Name:David Vee, 10:00:00 AM, [address] [place] [address], [address], [address], Insurance Providers Payer Name Payer Payer Insured Name Patient Coverage Covera End Address Phone Relationship to Start Date Prosper e Insured [employer] [phone] RIKI THORNTON and Blue [id number] [address] [place] [phone]
--- OUTSIDE RECORDS SUMMARY | 2020-07-28 08:10 | XMS REPORT ---
:1955 Author Organization [facility] Address 210 [facility]. 200 [place] [address] Care Team Providers Name Role Phone David Vee Unavailable [phone] PROBLEMS Type Condition ICD9-CM HVO28-WH Onset Condition SNOMED Code Notes Code Code Dates Status Problem Enterococcus as B95.2 Active 483296042 the cause of diseases classified elsewhere Problem Urinary tract N39.0 Active 013466249657413 infection, site not specified Problem Lower urinary R39.9 Active 201864700 tract symptoms (LUTS) Problem Acute lower UTI N39.0 Active 41998362 Problem History of Z87.442 Active 736673618 nephrolithiasis Problem Left N20.0 Active 82552015 nephrolithiasis ALLERGIES Allergen (clinical Drug/Non Drug Reaction Allergy Type Onset Date S tatus drug ingredient) Allergy documented on EMR CODEINE Unknown Non Drug Allergy Active MORPHINE Unknown Non Drug Allergy Active VICODIN Unknown Non Drug Allergy Active ENCOUNTERS from 1955 to 2020-07-02 Encounter Location Date Provider Diagnosis [facility] 210 [facility] Jun, David Vee Left nephrol ithiasis Specialty/Urology [facility] 200 [place] N20.0 ; En terococcus as Clinic [place] the cause of di seases [address] classified else where B95.2 and Urina ry tract infection, site not specified N39.0 IMMUNIZATIONS No Information SOCIAL HISTORY Tobacco Use: [...] REASON FOR REFERRAL No Information VITAL SIGNS Height 70 in Jun, Weight 226.8 lbs Jun, Temperature 97.2 degrees Fahrenheit Jun, BMI 32.54 kg/m2 Jun, Oximetry 96 % Jun, Blood pressure systolic 131 mm Hg Jun, Blood pressure diastolic 66 mm Hg Jun, MEDICATIONS Medication SIG (Take, Route, Notes Start [...] Information RESULTS No Results REASON FOR VISIT +/- CYSTO, RENAL US/ AND KUB RESULTS MEDICAL (GENERAL) HISTORY Type Description Date Medical [...] Treatment Notes Treatm ent Clinical Notes Jun, Left nephrolithiasis (ICD-10 - N20.0) Jun, Enterococcus as the cause of diseases classified elsewhere (ICD-10 - B95.2) Jun, Urinary tract infection, site not specified (ICD-10 - N39.0) PLAN OF TREATMENT Treatment Notes Test Name Order Date Urine Culture, Routine 2020-07-02 Urine Culture, Routine 2020-07-02 Next Appt Details Provider Name:David Vee, 10:00:00 AM, [address] [place] [address], [facility] 200, [place], [address], Insurance Providers Payer Name Payer Payer Insured Name Patient Coverage Covera ge End Address Phone Relationship to Start Date Prosper e Insured [employer] [phone] RIKI THORNTON and Aron [id number] [address] [place] [phone]
--- OUTSIDE RECORDS SUMMARY | 2020-07-28 08:10 | XMS REPORT ---
:1955 Author Organization [facility] Address 210 [facility], [address] [place] [address] Care Team Providers Name Role Phone David Vee Unavailable [phone] PROBLEMS Type Condition ICD9-CM [id number] Onset Condition SNOMED Code Notes Code Code Dates Status Problem Lower urinary R39.9 Active 120818086 tract symptoms (LUTS) Problem Acute lower N39.0 Active 76900678 UTI ALLERGIES Allergen (clinical Drug/Non Drug Reaction Allergy Type Onset Date S tatus drug ingredient) Allergy documented on EMR CODEINE Unknown Non Drug Allergy Active MORPHINE Unknown Non Drug Allergy Active VICODIN Unknown Non Drug Allergy Active ENCOUNTERS from 1955 to 2020-06-10 Encounter Location Date Provider Diagnosis [facility] 210 [facility] Jun, David Vee Acute lo wer UTI Specialty/Urology [address] [place], N39.0 [place] [address] urinary tract symptoms (LUTS) R39.9 IMMUNIZATIONS No Information SOCIAL HISTORY Tobacco Use: [...] VITAL SIGNS Height 70 in Jun, Weight 224.2 lbs Jun, Temperature 98 degrees Fahrenheit Jun, BMI 32.17 kg/m2 Jun, Oximetry 96 % Jun, Blood pressure systolic 128 mm Hg Jun, Blood pressure diastolic 61 mm Hg Jun, MEDICATIONS Medication SIG (Take, Route, Notes Start Date End Date Status Frequency, Duration) Centrum Silver - as directed Orally Active Escitalopram Oxalate 10 MG 1 tablet Orally Once a Active day Metoprolol Tartrate 50 MG 1 tablet with food Active Orally Twice a day Calcium + Vitamin D3 600-5 1 tablet with a meal Active MG-MCG Orally Once a day Aspirin 81 81 MG 1 tablet Orally Once a Active day Vitamin B 12 100 MCG as directed Orally Active Levocetirizine 1 tablet in the evening Active Dihydrochloride 5 MG Orally Once a day PROCEDURES No Information RESULTS No Results REASON FOR VISIT BLADDER INFECTION-RECURRENT MEDICAL (GENERAL) HISTORY Type Description Date Medical [...] Treatment Notes Treatm ent Clinical Notes Jun, Acute lower UTI (ICD-10 - N39.0) Jun, Lower urinary tract symptoms (LUTS) (ICD-10 - R39.9) PLAN OF TREATMENT Treatment Notes Test Name Order Date URINALYSIS AUTO W/O SCOPE (30834) 2020-06-10 PVR 2020-06-10 Urine Culture 2020-06-10 Next Appt Details Provider Name:David Mariusz 2020-07-01 11:00:00 AM, [address] [place] [address], [place], [address], Insurance Providers Payer Name Payer Payer Insured Name Patient Coverage Covera End Address Phone Relationship to Start Date Prosper e Insured [employer] [phone] RIKI THORNTON and Blue [id number] [address] [place] [phone]
--- OUTSIDE RECORDS SUMMARY | 2020-07-28 08:10 | XMS REPORT ---
:1955 Author Organization [facility] Address [address] [facility]. 200 [place] [address] Care Team Providers Name Role Phone David Vee Unavailable [phone] PROBLEMS Type Condition ICD9-CM OTF63-AV Onset Condition SNOMED Code Notes Code Code Dates Status Problem Lower urinary R39.9 Active 440023039 tract symptoms (LUTS) Problem Acute lower N39.0 Active 35602983 UTI ALLERGIES Allergen (clinical Drug/Non Drug Reaction Allergy Type Onset Date S tatus drug ingredient) Allergy documented on EMR CODEINE Unknown Non Drug Allergy Active MORPHINE Unknown Non Drug Allergy Active VICODIN Unknown Non Drug Allergy Active ENCOUNTERS from 1955 to 2020-06-18 Encounter Location Date Provider Diagnosis [facility] [address] [place] [address] Jun, David Vee Specialty[facility] [address] IMMUNIZATIONS No Information SOCIAL HISTORY Tobacco Use: [...] TREATMENT Next Appt Details Provider Name:David Vee, 2020-07-01 11:00:00 AM, [address] [place] [address], [place], [address], Insurance Providers Payer Name Payer Payer Insured Name Patient Coverage Covera End Address Phone Relationship to Start Date Prosper e Insured [employer] [phone] RIKI THORNTON and Aron [id number] [address] [place] [phone]
--- OUTSIDE RECORDS SUMMARY | 2020-07-28 08:10 | XMS REPORT ---
:1955 Author Organization [facility] Address [address] [facility]. 200 [place] [address] Care Team Providers Name Role Phone David Vee Unavailable [phone] PROBLEMS Type Condition ICD9-CM NCB27-AJ Onset Condition SNOMED Code Notes Code Code Dates Status Problem Lower urinary R39.9 Active 783478568 tract symptoms (LUTS) Problem Acute lower N39.0 Active 55551164 UTI ALLERGIES Allergen (clinical Drug/Non Drug Reaction Allergy Type Onset Date S tatus drug ingredient) Allergy documented on EMR CODEINE Unknown Non Drug Allergy Active MORPHINE Unknown Non Drug Allergy Active VICODIN Unknown Non Drug Allergy Active ENCOUNTERS from 1955 to 2020-06-17 Encounter Location Date Provider Diagnosis [facility] [address] [place] [address] Jun, David Vee Specialty[facility] [address] IMMUNIZATIONS No Information SOCIAL HISTORY Tobacco Use: [...] Details Provider Name:David Vee, 2020-07-01 11:00:00 AM, [address] [place] [address], [place], [address], Insurance Providers Payer Name Payer Payer Insured Name Patient Coverage Covera End Address Phone Relationship to Start Date Prosper e Insured [employer] [phone] RIKI THORNTON and Aron [id number] [address] [place] [phone]
--- OUTSIDE RECORDS SUMMARY | 2020-07-28 08:11 | XMS REPORT | Summary of Care ---
:1955 Author Organization [facility] Address [address] [place] [address] Care Team Providers Name Role Phone MD Olman Primary Care Provider Reason for Visit Reason Comments Yearly Visit annual physical, no pap Encounter Details Date Type Department Care Team Description 07/08/2020 Office Visit [place] Alma Thurman MD Annual physical exam (Primary Dx); [address] Depression, unspecified depr ession type; [address] [place] [address] DRIVE [place] [phone] Allergies Active Allergy Reactions Severity Noted Date Comments Codeine Nausea and/or Vomiting 09/30/2015 Hydrocodone Nausea and/or Vomiting 09/30/2015 Morphine Nausea and/or Vomiting 09/30/2015 documented as of this encounter (statuses as of 07/08/2020) Medications Medication Sig Dispensed Refills Start Date End Date Status metoprolol tartrate Take 1 Tab 3 07/07/2015 Active (LOPRESSOR) 50 mg by mouth 2 tablet (two) times daily. naproxen 500 mg Take 1 60 tablet 0 10/29/2019 Act santy tabletIndications: tablet by Strain of rhomboid mouth 2 muscle, initial (two) times encounter daily with meals. cyclobenzaprine 10 Take 1 30 tablet 0 10/29/2019 Active mg tablet by tabletIndications: mouth 3 Strain of rhomboid (three) muscle, initial times daily encounter as needed for Muscle Spasms. escitalopram oxalate Take 1 90 tablet 3 07/08/2020 Active 10 mg tablet by tabletIndications: mouth Depression, daily. unspecified depression type ESCITALOPRAM OXALATE TAKE 1 90 tablet 3 09/27/2019 07/08/20 2 Discontinued 10 mg TABLET BY 0 (Reorder) tabletIndications: MOUTH DAILY Depression, unspecified depression type documented as of this encounter (statuses as of 07/08/2020) Active Problems Problem Noted Date Depression 09/30/2015 documented as of this encounter (statuses as of 07/08/2020) Immunizations Name Administration Dates Next Due Influenza Virus Vaccine Quad .5 mL IM 6+ MO 07/08/2020 documented as of this encounter Social History Tobacco Use Types Packs/Day Years Used Date Former Smoker Quit: 09/29/18 98 Smokeless Tobacco: Never Used Alcohol Use Drinks/Week oz/Week Comments No Sex Assigned at Date Recorded Not on file COVID-19 Exposure Response Date Recorded In the last month, have you been in contact with No / Unsure 07/01/2020 12:09 PM 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 documented as of this encounter Last Filed Vital Signs Vital Sign Reading Time Taken Comments Blood Pressure 118/70 07/08/2020 8:10 AM TUMBLER 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 Pulse 75 07/08/2020 8:10 AM TUMBLER 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 Temperature - - Respiratory Rate - - Oxygen Saturation 96% 07/08/2020 8:10 AM TUMBLER 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 Inhaled Oxygen Concentration - - Weight 101.6 kg (224 lb) 07/08/2020 8:10 AM TUMBLER 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 Height 182.9 cm (6') 07/08/2020 8:10 AM TUMBLER 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 Body Mass Index 30.38 07/08/2020 8:10 AM TUMBLER 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 documented in this encounter Progress Notes Francisco Thurman MD - 07/08/2020 8:00 AM CST Cc: annual Chief Complaint Patient presents with Yearly Visit annual physical, no pap Kandy Zheng is a 64 year old female. Here for annual Allergies Kandy is allergic to codeine; hydrocodone; [...] Surgical History: Procedure Laterality Date ECTOPIC REMOVAL 1993 FRACTURE SURGERY TONSILLECTOMY Social History Socioeconomic History [...] Former Smoker Quit date: 09/29/1997 Years since quittin.7 Smokeless tobacco: Never Used Substance and Sexual Activity Alcohol use: No Drug use: Not on file Sexual activity: Not on file Lifestyle Physical activity Days per week: Not on file Minutes per session: Not on file Stress: Not on file Relationships Social connections Talks on phone: Not on file Gets together: Not on file Attends alevism service: Not on file Active member of [...] Paternal Grandmother Review of Systems Constitutional: Negative. HENT: Negative. Eyes: Negative. Respiratory: Negative. Cardiovascular: Negative. Gastrointestinal: Negative. Genitourinary: Positive for dysuria and flank pain. Skin: Negative. Neurological: Negative. Psychiatric/Behavioral: Negative. All other systems reviewed and are negative. Endocrine: Endocrine negative Vital Signs BP 118/70 | Pulse 75 | Ht 6' (1.829 m) | Wt 224 lb (101.6 kg) | SpO2 96% | BMI 30.38 kg/m Physical Exam Vitals signs reviewed. Constitutional: Appearance: Normal appearance. HENT: Head: Normocephalic and atraumatic. Right Ear: Tympanic membrane normal. Left Ear: Tympanic membrane normal. Nose: Nose normal. Neck: Musculoskeletal: Normal range of motion. Cardiovascular: Rate and Rhythm: Normal rate and regular rhythm. Pulses: Normal pulses. Heart sounds: Normal heart sounds. Pulmonary: Effort: Pulmonary effort is normal. Breath sounds: Normal breath sounds. Abdominal: General: Abdomen is flat. Musculoskeletal: Normal range of motion. Skin: General: Skin is warm and dry. Neurological: General: No focal deficit present. Mental Status: She is alert. Assessment/Plan Annual exam, labs Depression, medication refill This visit did not involve counseling and coordination that comprised more than 50% of the visit time. documented in this encounter Plan of Treatment Date Type Specialty Care Team Description 07/23/2020 Office Visit Obstetrics & Gynecology Me pedro Campuzano MD [address] [place] [address] [address], [place] [phone] Name Type Priority Associated Diagnoses Order S chedule CBC WITH DIFF LAB Routine Annual physical exam Ordere d: 07/08/2020 COMP. METABOLIC PANEL LAB Routine Annual physical exa m Expected: 07/08/2020, ([id number]) Expires: 2020 LIPID PANEL ([id number])(TOTAL LAB Routine Annual physical exam Expected: 07/08/2020, CHOLESTEROL, TRIGLYCERIDES, Expires: 07/08/2021 HDL) GLYCOSYLATED HEMOGLOBIN LAB Routine Annual physical e xam Expected: 07/08/2020, (A1C) Expires: 2020 Health Maintenance Due Date Last Done Comments HEPATITIS C (HCV) SCREEN 1955 DTaP,Tdap,and Td Vaccines (1 - 1976 Tdap) PAP SMEAR 1978 Breast Cancer Screening 1997 (MAMMOGRAM) COLON CANCER SCREENING ANNUAL 2007 FIT/FOBT COLON CANCER SCREENING FIT DNA 2007 EVERY 3 YEARS COLON CANCER SCREENING 2007 SIGMOIDOSCOPY EVERY 5 YEARS COLONOSCOPY 2007 Colorectal Cancer Screening 2007 Zoster Recombinant Vaccine 2007 (SHINGRIX) (1 of 2) INFLUENZA VACCINE (#1) 2020 Depression Screening 07/08/2021 07/08/2020 PNEUMOCOCCAL 0-64 YEARS COMBINED Aged Out No longer eligible based on SERIES patient's age to complete this topic documented as of this encounter Procedures Procedure Name Priority Date/Time Associated Diagnosis Comme nts FLU VACC ([id number]), Routine 07/08/2020 8:31 AM 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 Needs fl u shot 6+ MONTHS, IM, QUAD documented in this encounter Results Not on filedocumented in this encounter Visit Diagnoses Diagnosis Annual physical exam - Primary Routine general medical examination at a health care facility Depression, unspecified depression type Needs flu shot Need for prophylactic vaccination and in oculation against influenza documented in this encounter Insurance Payer Benefit Plan Subscriber ID Effective Dates Phone Address Type / Group [facility] [id number] 2019-Haris [phone] [address] PPO/POS [place] t 7 [id number] [place] [address] documented as of this encounter"
--- OUTSIDE RECORDS SUMMARY | 2020-07-28 08:11 | XMS REPORT | Summary of Care ---
:1955 Author Organization [facility] Address [address] [place] [address] Care Team Providers Name Role Phone MD Olman Primary Care Provider Reason for Visit Reason Comments Yearly Visit annual physical, no pap Encounter Details Date Type Department Care Team Description 07/08/2020 Office Visit [facility] Family Alma Thurman MD Annual physical exam (Primary Dx); [address] Depression, unspecified depr ession type; [address] [place] [address] [address] [place] [phone] Allergies Active Allergy Reactions [...] with No / Unsure 07/01/2020 12:09 PM CASHIER PAYMENTS RECEIVED someone who was confirmed or suspected to have Coronavirus / COVID-19? documented as of this encounter Last Filed Vital Signs Vital Sign Reading Time Taken Comments Blood Pressure 118/70 07/08/2020 8:10 AM CASHIER PAYMENTS RECEIVED Pulse 75 07/08/2020 8:10 AM CASHIER PAYMENTS RECEIVED Temperature - - Respiratory Rate - - Oxygen Saturation 96% 07/08/2020 8:10 AM CASHIER PAYMENTS RECEIVED Inhaled Oxygen Concentration - - Weight 101.6 kg (224 lb) 07/08/2020 8:10 AM CASHIER PAYMENTS RECEIVED Height 182.9 cm (6') 07/08/2020 8:10 AM CASHIER PAYMENTS RECEIVED Body Mass Index 30.38 07/08/2020 8:10 AM CASHIER PAYMENTS RECEIVED documented in this encounter Progress Notes Francisco [...] file Gets together: Not on file Attends mandaen service: Not on file Active member of [...] Obstetrics & Gynecology Me pedro Campuzano MD [address] [place] [address] [address], [place] [phone] Name Type Priority Associated Diagnoses Order S chedule CBC WITH DIFF LAB Routine Annual physical exam Ordere d: 07/08/2020 COMP. METABOLIC PANEL LAB Routine Annual physical exa m Expected: 07/08/2020, ([id number]) Expires: 2020 LIPID PANEL ([id number])(TOTAL LAB Routine Annual physical exam Expected: 07/08/2020, [...] Date/Time Associated Diagnosis Comme nts FLU VACC ([id number]), Routine 07/08/2020 8:31 AM CASHIER PAYMENTS RECEIVED Needs fl u shot 6+ MONTHS, IM, [...] Effective Dates Phone Address Type / Group [facility] [id number] 2019-Haris [phone] [address] PPO/POS [place] t 7 [id number] [place] [address] documented as of this encounter"
--- OUTSIDE RECORDS SUMMARY | 2020-07-28 08:11 | XMS REPORT ---
:1955 Author Organization [facility] Address [address] [facility] [address] [place] [address] Care Team Providers Name Role Phone Mariusz David Unavailable [phone] PROBLEMS Type Condition ICD9-CM [id number] Onset Condition SNOMED Code Notes Code Code Dates Status Problem Lower urinary R39.9 Active 483226917 tract symptoms (LUTS) Problem Urinary tract N39.0 Active 495831472621769 infection, site not specified Problem Recurrent UTI N39.0 Active 016613449 Problem Acute lower UTI N39.0 Active 11543139 Problem History of Z87.442 Active 951611805 nephrolithiasis Problem Left N20.0 Active 34169355 nephrolithiasis Problem Enterococcus as B95.2 Active 323692804 the cause of diseases classified elsewhere ALLERGIES Allergen (clinical Drug/Non Drug Reaction Allergy Type Onset Date S tatus drug ingredient) Allergy documented on EMR CODEINE Unknown Non Drug Allergy Active MORPHINE Unknown Non Drug Allergy Active VICODIN Unknown Non Drug Allergy Active ENCOUNTERS from 1955 to 2020-07-20 Encounter Location Date Provider Diagnosis [facility] [address] [facility] [address] Jul, David [facility]ee [facility] [address] IMMUNIZATIONS No Information SOCIAL HISTORY Tobacco Use: [...] Start Date End Date Status Frequency, Duration) Aspirin 81 81 MG 1 tablet Orally Once Active a day Calcium + Vitamin D3 600-5 1 tablet with a meal Active MG-MCG Orally Once a day Escitalopram Oxalate 10 MG 1 tablet Orally Once Active a day Macrobid 100 MG 1 capsule Orally Jul, 7 Sep, 2020 Active every other day for 30 days Centrum Silver - as directed Orally Active Levocetirizine 1 tablet in the Activ e Dihydrochloride 5 MG evening Orally Once a day Metoprolol Tartrate 50 MG 1 tablet with food Active Orally Twice a day Vitamin B 12 100 MCG as directed Orally Active PROCEDURES No Information RESULTS No Results REASON [...] Information ASSESSMENTS No Information PLAN OF TREATMENT Medication Medication Name Sig Start Date Stop Date Macrobid 100 MG 1 capsule Orally every other day for 30 days Jul, 7 Sep, 2020 Next Appt Details Provider Name:David Vee, 10:00:00 AM, [address] [place] [address], [phone], Provider Name:David Vee, 10:00:00 AM, [address] [place] [address], [phone], Insurance Providers Payer Name Payer Payer Insured Name Patient Coverage Covera ge End Address Phone Relationship to Start Date Prosper e Insured [employer] [phone] RIKI THORNTON and Blue [id number] [address] [place] [phone]
--- OUTSIDE RECORDS SUMMARY | 2020-07-28 08:11 | XMS REPORT ---
:1955 Author Organization [facility] Address [address] [facility]. 200 [place] [address] Care Team Providers Name Role Phone Mariusz David Unavailable [phone] PROBLEMS Type Condition ICD9-CM [id number] Onset Condition SNOMED Code Notes Code Code Dates Status Problem Lower urinary R39.9 Active 194339183 tract symptoms (LUTS) Problem Urinary tract N39.0 Active 788961122022811 infection, site not specified Problem Recurrent UTI N39.0 Active 418211307 Problem Acute lower UTI N39.0 Active 11025988 Problem History of Z87.442 Active 258065665 nephrolithiasis Problem Left N20.0 Active 29246276 nephrolithiasis Problem Enterococcus as B95.2 Active 621384830 the cause of diseases classified elsewhere ALLERGIES Allergen (clinical Drug/Non Drug Reaction Allergy Type Onset Date S tatus drug ingredient) Allergy documented on EMR CODEINE Unknown Non Drug Allergy Active MORPHINE Unknown Non Drug Allergy Active VICODIN Unknown Non Drug Allergy Active ENCOUNTERS from 1955 to 2020-07-15 Encounter Location Date Provider Diagnosis [facility] [address] Jul, David Vee Acute lower UTI N39.0 Specialty/Urology [facility] [address] [place] nephrolithiasis N20.0 [address] IMMUNIZATIONS No Information SOCIAL HISTORY Tobacco Use: [...] No Information VITAL SIGNS Height 70 in Jul, Weight 225.4 lbs Jul, Temperature 98.0 degrees Fahrenheit Jul, BMI 32.34 kg/m2 Jul, Oximetry 95 % Jul, Blood pressure systolic 127 mm Hg Jul, Blood pressure diastolic 58 mm Hg Jul, MEDICATIONS Medication SIG (Take, Route, Notes Start Date End Date Status Frequency, Duration) Aspirin 81 81 MG 1 tablet Orally Once Active a day Calcium + Vitamin D3 600-5 1 tablet with a meal Active MG-MCG Orally Once a day Escitalopram Oxalate 10 MG 1 tablet Orally Once Active a day Macrobid 100 MG 1 capsule Orally Jul, Sep, Active every other day for 30 days Centrum Silver - as directed Orally Active Levocetirizine 1 tablet in the Activ e Dihydrochloride 5 MG evening Orally Once a day Metoprolol Tartrate 50 MG 1 tablet with food Active Orally Twice a day Vitamin B 12 100 MCG as directed Orally Active PROCEDURES No Information RESULTS No Results REASON FOR VISIT CYSTO MEDICAL (GENERAL) HISTORY Type Description Date [...] Notes Treatment Notes Treatm ent Clinical Notes Jul, Acute lower UTI (ICD-10 - N39.0) Jul, Left nephrolithiasis (ICD-10 - N20.0) PLAN OF TREATMENT Medication Medication Name Sig Start Date Stop Date Macrobid 100 MG 1 capsule Orally every other day for 30 days Jul, Sep, Treatment Notes Test Name Order Date URINALYSIS AUTO W/O SCOPE ([id number]) 2020-07-15 Next Appt Details Provider Name:David Vee, 10:00:00 AM, [address] [place] [address], [place], [phone], Insurance Providers Payer Name Payer Payer Insured Name Patient Coverage Covera ge End Address Phone Relationship to Start Date Prosper e Insured Blue Cross [phone] RIKI THORNTON and Aron [id number] [address] [place] [phone]
--- OUTSIDE RECORDS SUMMARY | 2020-07-28 08:11 | XMS REPORT | Summary of Care ---
:1955 Author Organization [facility] Address [address] [place] [address] Care Team Providers Name Role Phone MD Olman Primary Care Provider Reason for Visit Reason Comments LAB WORK Encounter Details Date Type Department Care Team Description 07/08/2020 Valet Attendant Visit [facility] Merrill Thurman MD [address] [place] [phone] Annual physical exam Medicine - [facility], [facility] Fam Pob I [address] [place] [phone] Allergies Active Allergy Reactions Severity Noted Date Comments Codeine Nausea and/or Vomiting 09/30/2015 Hydrocodone Nausea and/or Vomiting 09/30/2015 Morphine Nausea and/or Vomiting 09/30/2015 documented as of this encounter (statuses as of 07/08/2020) Medications Medication Sig Dispensed Refills Start Date End Date Status metoprolol tartrate Take 1 Tab by 3 07/07/2015 Active (LOPRESSOR) 50 mg tablet mouth 2 (two) times daily. naproxen 500 mg Take 1 tablet 60 tablet 0 10/29/2019 Active tabletIndications: Strain by mouth 2 of rhomboid muscle, (two) times initial encounter daily with meals. cyclobenzaprine 10 mg Take 1 tablet 30 tablet 0 10/29/2019 Active tabletIndications: Strain by mouth 3 of rhomboid muscle, (three) times initial encounter daily as needed for Muscle Spasms. escitalopram oxalate 10 Take 1 tablet 90 tablet 3 07/08/2020 Active mg tabletIndications: by mouth daily. 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 documented as of this encounter Last Filed Vital Signs Not on filedocumented in this encounter Nursing Notes Malissa Fuentes - 07/08/2020 8:40 AM CST Venipuncture collection performed by clean technique on the right anticubitus. Total of 1 attempts were made. Slight pressure and a bandage/dressing were applied to the site(s). The patient experiencedno complications. The following specimens were processed according to instructions and sent to [facility] laboratories per lab order on today: LT BLUE SST 1 RED LAV 2 PPT DK GREEN (LiHep) DK GREEN (SodH) YOUNG DK BLUE (K2) DK BLUE (S) ACD Blood Culture NIPT/NTD documented in this encounter Plan of Treatment Date Type Specialty Care Team Description 07/23/2020 Office Visit Obstetrics & Gynecology Me pedro Campuzano MD [address] [facility] [address] [place] [address] Health Maintenance Due Date Last Done Comments [...] encounter Visit Diagnoses Diagnosis Annual physical exam Routine general medical examination at a health care facility documented in this encounter Insurance Payer Benefit Plan Subscriber ID Effective Dates Phone Address Type / Group [facility] [id number] 2019-Haris [phone] [address] PPO/POS [place] t [id number] [place] [address] documented as of this encounter
[2020-07-28] MEDS ORDERED: NA CHLORIDE 0.9% 1,000 ML ONE ×2 (08:35→11:38)
[2020-07-28] MEDS ORDERED: propofoL 200 MG/20 ML VIAL IV ONE (09:49)
[2020-07-28] MEDS ORDERED: FENTANYL CITR 100 MCG/2 ML ONE (09:49)
[2020-07-28] MEDS ORDERED: dexAMETHasone 10 MG/ML VIAL ONE (09:49)
[2020-07-28] MEDS ORDERED: MIDAZOLAM HCL 2 MG/2 ML INJ ONE (09:49)
[2020-07-28] MEDS ORDERED: ONDANSETRON 4 MG/2 ML VIAL ONE (09:49)
[2020-07-28] MEDS ORDERED: LIDOCAINE 2% MPF 5 ML VIAL ONE (09:50)
[2020-07-28] MEDS ORDERED: KETOROLAC 30 MG/ML INJ ONE (11:34)
[2020-07-28 12:10] VITALS: O2SAT 95
--- NOTE | 2020-07-28 14:47 | OP ---
Surgeon: ZAHIDA OLIVEIRA Preoperative Diagnoses: 1.Recurrent urinary tract infections. 2.Left 8 mm lower pole nephrolithiasis. Postoperative Diagnoses: 1.Recurrent urinary tract infections. 2.Left 8 mm lower pole nephrolithiasis. Principle Procedure: Left extracorporeal shock wave lithotripsy. Indication For Procedure: Ms. Zheng presented to the Urology Clinic with recurrent urinary tract infe ctions with the same organism refractory to antimicrobial treatment. A nonobstructing renal calculus was observed, and given the potential for it being in itis for the recurrent infections in the absen ce of any bladder lesion or significant retention noted, the patient was scheduled for shockwave lith otripsy. Also, given the size of the stone greater than 6 mm, this was reasonable to prevent future stone, renal colic related event. Procedure In Detail: The patient was consented in the preoperative holding area before being transfe rred to the operative suite where general anesthesia using an LMA was induced. She was given ampicil afua plus gentamicin 160 mg IV antimicrobial prophylaxis. Given the Enterococcus observed in her urin e previously and having been treated with amoxicillin followed by prophylactic Macrobid. Pneumoboots was provided for DVT prophylaxis. She was placed supine on the procedure table with a water bath be neath her flank. Fluoroscopic imagery was used to identify and target the stone in the region of the lower pole of the left kidney. It was targeted in the left right as well as anterior-posterior dime nsion successfully. Shock wave lithotripsy was then begun starting at a power of 1.5 in ramping up o jose the course of 500 shocks to 5 in power. A 2 minute pause was undertaken after around 200 shocks. Shock wave lithotripsy continued with intermittent fluoroscopic imagery obtained by the hazardous material technician to confirm adequate targeting throughout, and after 1500 shocks, we removed the head of the shock wav e lithotripsy machine in order to reimage her properly. The stone was significantly fragmented, but there was still a cloud visible; so, an additional 500 shocks was applied to this cloud of dust with a power setting of 6.0 until after 2000 shocks, no additional dust cloud or stone was perceptible. A s a result, the case was concluded, the patient was awakened from general anesthesia, transferred to a stretcher, and then transferred to the recovery room in good condition. Complications: None. Discharge Disposition: She will follow up in approximately 3 weeks with nurse practitioner, [place] where she will obtain a KUB pre visit 1-3 days prior. If resolution of the stone burden has been ad equately achieved on the left side, it would then be reasonable to discontinue her prophylactic daily Macrobid. Approximately 1 month later, a reassessment via urine culture for ongoing/persistent urin ten tract infection should then be undertaken. If any signs of persistent infection despite the abse nce of the calculus, we will have to consider additional anatomic imaging in addition to confirming s he empties completely when she voids. Otherwise, with resolution of her infection, it was likely ass ociated with the stone. If she is a recurrent stone former, metabolic stone profile analysis would b e in order. Any right renal stone burden visible on plain film may also be targeted. If persistent infection after that 1 month followup if the left side has been successfully treated. MED/YOLY Voice ID: [id number] Report ID: [id number]
[2020-07-28 15:07] VITALS: BP 116/57; TEMP 97.2
[2020-07-28] MEDS ORDERED: IBUPROFEN 200 MG TAB PO ONE (17:18)
[2020-07-28] MEDS ORDERED: IBUPROFEN 400 MG TAB ONE (17:18)
== END 2020-07-28 13:55 | disposition home or self-care (01) ==
LOC: OR 08:06
PROVIDERS: ATTEND Urology
PROC: 0TF4XZZ Fragmentation in Left Kidney Pelvis, External Approach (ICD-10-PCS; principal; 2020-07-28 09:30)
DX: N20.0 Calculus of kidney (principal); N39.0 Urinary tract infection, site not specified; I48.91 Unspecified atrial fibrillation; Z20.822 Contact with and (suspected) exposure to COVID-19
CPT/HCPCS: 93005; 87088; 85025; 87086; 80048; 36415; 85610; 82947 ×2; 71046; 50590 ×2; U0002; J2704; J1580; J2250; J3010; J1100; J7030 ×2; J2405; J0290